=== PATIENT | female | born 1945 | race Two or more races ===

== ENCOUNTER 2016-11-23 12:44 | Day surgery (SDC) | payer BC ==
[~2016-11-23] VITALS: Ht 152.4 cm; Wt 58.5 kg
[2016-11-23 13:41] VITALS: Ht 152.4 cm; Wt 58.5 kg
[2016-11-23] MEDS ORDERED: METOPROLOL (14:02)
[2016-11-23] MEDS ORDERED: CHOLESTEROL MED (14:02)
[2016-11-23] MEDS ORDERED: LOSARTAN (14:02)
[2016-11-23] MEDS ORDERED: DIABETES MED (14:02)
[2016-11-23 14:09] VITALS: BP 177/79; PULSE 63; RESP 18
[2016-11-23] MEDS ORDERED: LIDOCAINE 4% SOLUTION 50 ML BTL ONE (14:18)
[2016-11-23] MEDS ORDERED: FENTAnyl 50 MCG/ML VIAL ONE (15:00)
[2016-11-23] MEDS ORDERED: MIDAZOLAM 1 MG/ML 2 ML INJ ONE ×2 (15:00)
[2016-11-23 15:15] VITALS: BP 125/73; PULSE 54; RESP 16
--- NOTE | 2016-11-24 09:43 | GILP ---
DATE OF PROCEDURE: 11/23/2016 PREOPERATIVE DIAGNOSIS: Epigastric pain. PROCEDURE DONE: Esophagogastroduodenoscopy. POSTOPERATIVE DIAGNOSIS: Normal study. DESCRIPTION OF PROCEDURE: The patient was put in left lateral decubitus after obtaining informed co nsent. He was given 3 mg IV Versed and 50 mcg of fentanyl. Very carefully I advanced Olympus video upper endoscope in the esophagus, stomach and duodenum. Thorough examination up to second part of the duodenum. Esophagus is normal in its entire length in stomach, including fundal area by retrofl exion, body and antrum normal. Pyloric channel normal. Duodenal bulb and first and second part of the duodenum normal. Upon removal of the scope, patient had no complication. PLAN: Plan will be to observe. If the pain continues, consider ultrasonography of the upper abdome n. Meanwhile, we will proceed with colonoscopy as planned. Dictated By: SAM GILBERT Conf#: [id number] DID#: [id number] CC: Dr. Barber Vasquez;*EndCC*
--- NOTE | 2016-11-24 09:53 | GILP ---
DATE OF PROCEDURE: 11/23/2016 PREOPERATIVE DIAGNOSIS: Screening colonoscopy. POSTOPERATIVE DIAGNOSIS: Normal colon. DESCRIPTION OF PROCEDURE: The patient was put in left lateral decubitus after obtaining informed co nsent after EGD. Further sedation and monitoring continued with oximetry, EKG, blood pressure. She received 1 more mg of IV Versed, 50 mcg of fentanyl, and a rectal exam done. Advanced an Novavax ABu s video colonoscope all the way to cecum. Ileocecal valve, appendiceal opening identified. Cecum, ascending colon, transverse colon, descending colon, sigmoid colon, and rectum essentially normal in cluding retroflexion. Normal study. Plan will be to consider followup as outpatient and repeat colonoscopy in 10 years. Dictated By: SAM GILBERT Conf#: [id number] DID#: [id number]
== END 2016-11-23 15:57 | disposition home or self-care (01) ==
LOC: GIL 12:44
PROVIDERS: ATTEND Internal Medicine
DX: Z12.11 Encounter for screening for malignant neoplasm of colon (principal); R10.13 Epigastric pain
CPT/HCPCS: 43235; 45378; J2250; J3010; Z7610